=== PATIENT | male | born 1950 | race Caucasian/White ===

== ENCOUNTER 2016-10-25 10:50 | Inpatient (IN) | payer OTHER, MEDICARE ==
[~2016-10-25] VITALS: Ht 180.3 cm; Wt 91.8 kg
[~2016-10-25 10:50] MED LIST: ALBUAER3 INH; GLIP10TA6 PO; IBUP800T23 PO; LISI-519 PO; METF1000 PO; PROP20TA3 PO; ZOCO20TA PO; [UNRECOGNIZED DRUG - OTHER]
[2016-11-01] MEDS ORDERED: EMPA1TAB PO (12:43)
--- NOTE | 2016-11-08 16:35 | MH ---
cc: KATIUSKA RIGGS M.D., ROHIT K. M.D. DATE OF ADMISSION: 11/09/2016 ADMITTING DIAGNOSIS: Lumbar degenerative disk disease. HISTORY OF PRESENT ILLNESS: This is a 66-year-old male who presented to us for evaluation of low back pain and he had a right leg pain. He states in June/ July 2012 he tripped at work and developed low back pain. He states initially this was a workers' compensation case, but he states it was determined his low back pain was from degeneration and not his injury and the case was closed. He complains of pain radiating into the right medial thigh and calf into the foot and then it is hard to tell in the foot where goes. He has paresthesias associated with this. He denies any left leg symptoms. He denies any bowel or bladder incontinence. He has tried physical therapy which did not help and it may have made it worse. He has been to a chiropractor which helped initially but less effective with time. He has been to pain management had initially two epidural steroid injections and other at a later and they helped for a short period time. He states the only thing that has helped him is Percocet 10/325 he is taking q. 5 hours. He states he took this for almost two years and has been off since June and he has seen his primary care physician who gave him tramadol, but he states that it is not as affective and he feels more side effects from that medication. PAST MEDICAL HISTORY: 1. The past medical history is significant for diabetes mellitus. 2. Hypertension, 3. Hyperlipidemia, 4. Left knee surgery for torn ligaments in 1968 5. Right shoulder surgery for rotator cuff in 2012 6. Right knee surgery for meniscus repair in 2013 7. Surgery for diverticulitis in 2010. CURRENT MEDICATIONS 1. He is taking tramadol 50 mg. 2. Glipizide 10 mg b.i.d. 3. Lisinopril 5 mg daily. 4. Metformin 1000 mg b.i.d. 5. Propranolol 20 mg b.i.d. 6. Simvastatin 20 mg q.h.s. 7. ProAir p.r.n. 8. Jardiance. FAMILY HISTORY His father is at 80 year's, his mother is at 86 year's old. His brother is alive at 53 year's old and well. He has sister who is alive at 63 year's old and well. SOCIAL HISTORY He is . He does not have children.. He does not smoke. He quit in 1994. He drinks alcohol very occasionally which include REVIEW OF SYSTEMS CONSTITUTIONAL: He denies any fever or chills. EARS, NOSE, AND THROAT: no pharyngitis, exudates or bloody drainage from his nose. CARDIOVASCULAR: Denies any chest pain or palpitations. RESPIRATORY: No cough or shortness of breath. GENITOURINARY: No dysuria hematuria. MUSCULOSKELETAL: Positive for low back pain. SKIN: No rashes or pruritus. NEUROLOGIC: No difficulty with speech or memory. GASTROINTESTINAL: No nausea, vomiting, Abdominal pain. PSYCHIATRIC: No anxiety or depression symptoms ENDOCRINE: No polyuria, polydipsia. HEMATOLOGIC: No bruising or bleeding tendencies. PHYSICAL EXAMINATION HEAD, EYES, EARS, NOSE, AND THROAT: No is normocephalic, atraumatic. NECK: supple. No carotid bruits heard on auscultation. LUNGS: Clear to auscultation bilaterally. HEART: Regular rate and rhythm, normal s1, s2. ABDOMEN: Soft, nontender. Positive bowel sounds. SKIN: Reveals no cyanosis or erythema. MUSCULOSKELETAL: He has give-way right iliopsoas weakness at 4/5 right EHL weakness 4/5 otherwise strength is 5/5 in lower extremities. NEUROLOGIC: He is awake, alert, oriented. Cranial nerves II-XII are grossly intact. Speech is fluent. Comprehension is good. Reflexes are very diminished in lower extremities. DATE REVIEWED: Reviewed MRI of the lumbar spine from January 13, 2016 which reveals severe L5-S1 disk degeneration with disk height collapse along with facet arthropathy and significant left-sided foraminal stenosis. There is also L4/L5 disk degeneration with a facet arthropathy and disk protrusion with significant right-sided foraminal stenosis. IMPRESSION 66-year-old male with a chronic history of low back pain with associated right L5 radiculopathy. His pain and symptoms limit his activity status and he has not responded to conservative measures including physical therapy and chiropractic treatment as well as interventional pain management. He has severe L5-S1 degenerative disk disease with disk height collapse along with left-sided foraminal stenosis as well as moderate of L4-L5, degenerative disk disease with facet arthropathy and significant right-sided foraminal stenosis. PLAN We have discussed treatment options with the patient which include continued conservative measures with pain management versus surgical intervention. The patient states he wants to proceed with surgical intervention. We have recommended a L4-L5 and L5-S1 transforaminal decompression with interbody fusion pedicle screw fixation. The procedure as well as risk benefit, alternative and recovery time were explained in great detail with the patient. We have discussed the risks involved with surgery include but are not limited to bleeding, infection, muscle weakness voice hoarseness, difficulty swallowing, heart attack, stroke blood clots, non fusion scar tissue formation among others. All of his questions were answered to his satisfaction, he is requesting that we proceed and he was therefore scheduled accordingly. Michael Vásquez MD DICTATED BY DARYN Mijares/bin /3:51 PM /4:05 PM
[2016-11-09] MEDS ORDERED: VANCOMYCIN HCL 1000 MG ON-CALL/NS 250 ML IV SCH ×2 (06:15)
[2016-11-09] MEDS ORDERED: SODIUM CHLORID 0.9% 500 ML IV PRN (06:30)
[2016-11-09] MEDS ORDERED: CHLORHEXIDINE GLUCONATE 2 % 1 PACK (2 CLOTHS) TOPICAL PRN (06:30)
[2016-11-09] MEDS ORDERED: LACTATED RINGER'S 1000 ML IV PRN (06:30)
[2016-11-09] MEDS ORDERED: INSULIN HUMAN REGULAR 1,000 UNITS/10 ML VIAL SQ PRN (06:30)
[2016-11-09] MEDS ORDERED: METOPROLOL TARTRATE 25 MG TAB PO PRN (06:30)
[2016-11-09] MEDS ORDERED: POVIDONE IODINE 5% (ANTISEPSIS KIT) 4 APPLICATIONS EACH NARE PRN (06:30)
[2016-11-09] MEDS ORDERED: SODIUM CHLOR 0.9% 1000 ML INJ 1,000 ML IV SCH (06:30)
[2016-11-09] MEDS ORDERED: GELFOAM SIZE 100 ONE (06:48)
[2016-11-09] MEDS ORDERED: THROMBIN (TOPICAL) 5,000 UNIT VIAL ONE (06:48)
[2016-11-09 06:49] VITALS: BP 121/76; PULSE 50; RESP 18; TEMP 98; O2SAT 97
[2016-11-09] MEDS ORDERED: MIDAZOLAM HCL 2 MG/2 ML VIAL ONE (07:51)
[2016-11-09] MEDS ORDERED: DEXAMETHASONE SOD PHOS 4 MG/ML VIAL ONE (07:51)
[2016-11-09] MEDS ORDERED: ACETAMINOPHEN 1000 MG/100 ML VIAL IV ONE (07:51)
[2016-11-09] MEDS ORDERED: FAMOTIDINE 20 MG/2 ML VIAL ONE (07:51)
[2016-11-09] MEDS: BUPIVACAINE/EPINEPHRINE 0.5% PF 30 ML VIAL ONE ×2 (09:27→12:16)
[2016-11-09] MEDS: VANCOMYCIN HCL 1000 MG VIAL ONE ×2 (09:30→12:16)
[2016-11-09] MEDS ORDERED: NORMOSOL R INJ 2,000 ML IV ONE (12:00)
[2016-11-09] MEDS ORDERED: ePHEDrine/NS 25 MG/5 ML SYR IV ONE (12:00)
[2016-11-09] MEDS ORDERED: NEOSTIGMINE 3 MG/3 ML SYR IV ONE (12:00)
[2016-11-09] MEDS ORDERED: ONDANSETRON HCL 4 MG/2 ML VIAL IV PUSH ONE (12:00)
[2016-11-09] MEDS ORDERED: PROPOFOL 200 MG/20 ML AMP IV ONE (12:00)
[2016-11-09] MEDS ORDERED: ALUMINUM/MAGNESIUM/SIMETH 30 ML CUP PO PRN (12:45)
[2016-11-09] MEDS ORDERED: POTASSIUM CHLOR 20 MEQ PREMIX 100 ML IV PRN (12:45)
[2016-11-09] MEDS ORDERED: cloNIDine HCL 0.1 MG TAB PO PRN (12:45)
[2016-11-09] MEDS ORDERED: MAGNESIUM HYDROXIDE SUSP 30 ML CUP PO PRN (12:45)
[2016-11-09] MEDS ORDERED: DEXTROSE 50% IN WATER 50 ML VIAL(D50) IV PRN (12:45)
[2016-11-09] MEDS ORDERED: NALOXONE HCL 0.4 MG/ML AMP IV PRN (12:45)
[2016-11-09] MEDS ORDERED: SODIUM CHLORIDE 0.9% FLUSH 10 ML FLUSH IV FLUSH PRN (12:45)
[2016-11-09] MEDS ORDERED: CALCIUM GLUCONATE INJ 1 GM in SODIUM CHLORIDE 0.9% INJ 100 ML IV PRN (12:45)
[2016-11-09] MEDS ORDERED: ONDANSETRON HCL 4 MG/2 ML VIAL IV PRN (12:45)
[2016-11-09] MEDS ORDERED: ACETAMINOPHEN 325 MG TAB PO PRN (12:45)
[2016-11-09] MEDS ORDERED: MAGNESIUM SULFATE INJ 2 GM in SODIUM CHLORIDE 0.9% INJ 100 ML IV PRN (12:45)
[2016-11-09] MEDS ORDERED: MENTHOL LOZENGE BUCCAL PRN (12:45)
[2016-11-09] MEDS ORDERED: diphenhydrAMINE HCL 50 MG/ML VIAL IV PRN (12:45)
[2016-11-09] MEDS ORDERED: ACETAMINOPHEN/HYDROcodone 325 MG/10 MG TAB PO PRN (12:45)
[2016-11-09] MEDS ORDERED: GLUCAGON 1 MG/ML VIAL OTHER PRN (12:45)
[2016-11-09] MEDS ORDERED: DO NOT ADM ANY ANTICOAGULANT DRUGS PRN (12:50)
--- NOTE | 2016-11-09 12:51 | PD.OP ---
Alex Huff MD Operative Report Date of Surgery: November 09, 2016 Preoperative Diagnosis: Intractable low back pain with right L4 and L5 radiculopathy; L4-5 and L5-S1 facet hypertrophy with degenerative disc disease and foraminal stenosis Postoperative Diagnosis: Same Procedure: Right L4-5 and L5-S1 transforaminal decompression with interbody fusion; L4-S1 pedicle screw fixation; L4-5 and L5-S1 interbody cage placement; microsurgical technique Anesthesia: Gen. endotracheal by Rebecca Castellanos Surgeon: Michael Vásquez M.D. Special Procedure Technologist(s): Deanne Sanchez Operation and Findings: Following initiation of general endotracheal anesthesia, the patient had a Navarrete catheter placed along with sequential compression devices. A gram of vancomycin was administered intravenously and he was turned in a prone position on a Harry frame, on a Otilio table, and all pressure points adequately padded. The lumbosacral region was then prepped with Chloraprep and sterilely draped with Ioban along the usual sterile draping. A right paraspinal skin incision was then made extending from the L4-S1 levels after infiltrating the skin with 0.5% Marcaine with epinephrine solution extending down through the fascia. The muscle fibers were split using avascular fatty plane and detached from the underlying facets, transverse process and lateral portion of lamina on the right side and a self-retaining retractor used for exposure. Intraoperative fluoroscopy was also used for level of confirmation along with microscope magnification for further dissection. There was significant facet and ligamentum flavum hypertrophy noted at the L4-5 and L5-S1 level. Right L4-5 and L5-S1 facets were resected with a drill bit along with the lamina and there was severe foraminal and lateral recess stenosis from hypertrophied ligamentum flavum and facet which were decompressed. There was significant disc height collapse along with disc protrusion also leading to the foraminal stenosis at both levels. Epidural hemostasis was achieved with bipolar cautery and Gelfoam with thrombin. Subsequently entered into the disc space at the L4- 5 and subsequently at the L5 and S1 level with a #15 blade and mallory were used for discectomy. I then placed PEEK cages packed with local autograft bone and more local autograft bone was packed adjacent to the cages in both interspaces for added interbody fusion. With placement of the cages, I was able to distract the interspace and opened up the foramen further bilaterally. Subsequently in order to facilitate the fusion and provide stabilization, pedicle screw fixation was undertaken using Russell spine screws on entry point at the right L4-5 at the junction of the transverse process and facet and S1 sacral ala. Subsequently using AP and lateral fluoroscopy tap and screw placement. The screws were then connected with a jomar and locked in place with caps. The construct appeared very secure at this point. The area was then copiously irrigated with Vancomycin solution and powder. The retractors were removed and the bipolar cautery used for hemostasis. The muscle fascia was then approximated using 2-0 Vicryl interrupted stitches and then 3-0 Vicryl subcuticular stitches also placed in interrupted fashion. The final skin closure was completed with Dermabond. A sterile dressing was then applied. The patient then turned in supine position, extubated and taken to recovery room. There were no intraoperative complications. All sponge and needle counts were correct at the end of procedure. Estimated blood loss about 100 ml. Michael Vásquez MD November 09, 2016 12:51
[2016-11-09] MEDS ORDERED: fentaNYL CITRATE 250 MCG/5 ML AMP ONE (13:00)
[2016-11-09] MEDS ORDERED: ALBUTEROL SULFATE 90 MCG/ACT HFA 18 GM INHALER INH PRN (13:00)
--- NOTE | 2016-11-09 13:02 | RADRPT ---
EXAM DATE/TIME: 11/09/2016 08:50 [facility] COMPARISON: No previous studies available for comparison. INDICATIONS : L4-L5-S1 posterior lumbar fusion. Level localization. MEDICAL HISTORY : None. SURGICAL HISTORY : None. ENCOUNTER: Initial ACUITY: 1 day PAIN SCORE: Non-responsive. LOCATION: Lumbar spine CONCLUSION: Fluoroscopic images demonstrates temporary probes along the posterior elements at L4 and L5. Harry Adkins MD on November 09, 2016 at 13:00 Board Certified Radiologist. This report was verified electronically.
--- NOTE | 2016-11-09 13:03 | RADRPT ---
EXAM DATE/TIME: 11/09/2016 08:50 [facility] COMPARISON: No previous studies available for comparison. INDICATIONS : Post-op L4-L5-S1 posterior lumbar fusion. MEDICAL HISTORY : None. SURGICAL HISTORY : None. ENCOUNTER: Initial ACUITY: 1 day PAIN SCORE: Non-responsive. LOCATION: Lumbar spine. FINDINGS: There are postoperative changes of right-sided transpedicular screw and jomar fixation across L4-L5-S1. Disc spacers present. No complications identified. CONCLUSION: 1. Postoperative fixation L4-5-S1 on the right side. No complications identified. Michael Javier MD on November 09, 2016 at 12:54 Board Certified Radiologist. This report was verified electronically.
[2016-11-09] MEDS: MORPHINE SULFATE 30 MG/30 ML PCA IV SCH (13:09)
[2016-11-09] MEDS: NS + KCL 20 MEQ INJ 1,000 ML IV SCH ×2 (13:09→19:43)
[2016-11-09 13:24] LABS: HEMATOCRIT 37.2 % (39.0-51.0); MEAN CELL VOLUME 92.1 FL (80.0-100.0); MEAN CORPUSCULAR HEMOGLOBIN 31.7 PG (27.0-34.0); MEAN CORPUSCULAR HGB CONC 34.4 % (32.0-36.0); PLATELET COUNT 171 TH/MM3 (150-450); RED BLOOD COUNT 4.04 MIL/MM3 (4.50-5.90); REVIEW FLAG FINAL; WHITE BLOOD COUNT 10.8 TH/MM3 (4.0-11.0)
[2016-11-09 13:39] LABS: BICARBONATE 23.2 MEQ/L (21.0-32.0); POTASSIUM 4.8 MEQ/L (3.5-5.1)
[2016-11-09] MEDS: PCA - TOTAL MG MORPHINE DELIVERED PER SHIFT SCH ×2 (14:00→22:00)
[2016-11-09 14:20] VITALS: BP 130/67; PULSE 57; RESP 18; TEMP 96.2; O2SAT 94
[2016-11-09] MEDS: ACETAMINOPHEN/HYDROcodone 325 MG/10 MG TAB PO PRN (15:25)
[2016-11-09 16:00] VITALS: BP 142/68; PULSE 54; RESP 18; TEMP 97.8; O2SAT 96
[2016-11-09] MEDS: INSULIN NovoLIN REGULAR SUPPLEMENTAL SCALE SQ SCH ×2 (16:00→19:44)
[2016-11-09] MEDS: PROPRANOLOL HCL 20 MG TAB PO SCH (19:42)
[2016-11-09] MEDS: SODIUM CHLORIDE 0.9% FLUSH 10 ML FLUSH IV FLUSH SCH (19:43)
[2016-11-09] MEDS: DOCUSATE SODIUM 100 MG CAP PO SCH (19:43)
[2016-11-09 20:00] VITALS: BP 156/95; PULSE 64; RESP 22; TEMP 96; O2SAT 94
[2016-11-10] VITALS (7 sets, daily range): BP systolic 97–151; BP diastolic 59–75; PULSE 57–77; RESP 17–20; TEMP 96.4–99.1; O2SAT 90–97
[2016-11-10] MEDS: ZOLPIDEM TARTRATE 5 MG TAB PO PRN ×2 (00:12→22:06)
[2016-11-10] MEDS: PCA - TOTAL MG MORPHINE DELIVERED PER SHIFT SCH ×3 (06:00→22:00)
[2016-11-10] MEDS: INSULIN NovoLIN REGULAR SUPPLEMENTAL SCALE SQ SCH ×4 (07:00→20:26)
[2016-11-10] MEDS: LISINOPRIL 5 MG TAB PO SCH (07:43)
[2016-11-10] MEDS: PRAVASTATIN SOD 40 MG TAB PO SCH (07:43)
[2016-11-10] MEDS: CYCLOBENZAPRINE HCL 10 MG TAB PO PRN (07:43)
[2016-11-10] MEDS: PROPRANOLOL HCL 20 MG TAB PO SCH ×2 (07:44→20:25)
[2016-11-10] MEDS: PANTOPRAZOLE SOD 40 MG DELAYED RELEASE TAB PO SCH (07:44)
[2016-11-10] MEDS: DOCUSATE SODIUM 100 MG CAP PO SCH ×2 (07:44→20:25)
[2016-11-10] MEDS: SODIUM CHLORIDE 0.9% FLUSH 10 ML FLUSH IV FLUSH SCH ×2 (07:45→20:26)
[2016-11-10] MEDS: LACTULOSE SYRUP 20 GM/30 ML CUP PO SCH (07:45)
[2016-11-10] MEDS: MORPHINE SULFATE 30 MG/30 ML PCA IV SCH (07:48)
[2016-11-10] MEDS: ACETAMINOPHEN/HYDROcodone 325 MG/10 MG TAB PO PRN (09:48)
[2016-11-10] MEDS: NS + KCL 20 MEQ INJ 1,000 ML IV SCH ×2 (15:00→20:27)
--- NOTE | 2016-11-10 20:16 | HHI.NSPN ---
History Chief Complaint: low back pain Interval History 66-year-old male underwent L4-S1 TLIF 11/09/16 11/10/16: Ambulated 145 feet in physical therapy with rolling walker. He remains on REGISTERED NURSE HH CASE MANAGER System Review Comments No abdominal pain, nausea. No fevers or chills. No lower extremity pain weakness or numbness Exam Results Vital Signs Date Time Temp Pulse Resp B/P Pulse Ox O2 Delivery O2 Flow Rate FiO2 11/10/16 15:30 98.0 64 17 116/59 90 11/10/16 09:03 21 11/09/16 13:45 Nasal Cannula 2 Intake and Output 11/09/16 11/09/16 11/10/16 08:00 16:00 00:00 Intake Total 2139 ml 1286 ml Output Total 1400 ml 750 ml Balance 739 ml 536 ml Physical Examination Sitting up in chair Appears reasonable comfortable REGISTERED NURSE HH CASE MANAGER place awake and alert conversant and appropriate Mild distal lower extremity edema Sensation intact to light touch lower extremities Strength normal lower extremities major flexion and extension groups Medical Decision Making Impression and Plan Impression: 1. Steady improvement in ambulation. L4-S1 discectomy and fusion. Plan: Findings were discussed with the patient. He would like to try to wean off the REGISTERED NURSE HH CASE MANAGER in the morning. Physical therapy notes reviewed. He ambulated 145 feet today with the rolling walker with contact guard assistance. Anticipate discharge home 11/12/16 Prabhu Sullivan MD November 10, 2016 20:16
[2016-11-11] VITALS (7 sets, daily range): BP systolic 102–132; BP diastolic 65–74; PULSE 72–98; RESP 16–18; TEMP 96.6–99.6; O2SAT 95–97
[2016-11-11] MEDS: ACETAMINOPHEN/HYDROcodone 325 MG/10 MG TAB PO PRN ×4 (05:19→20:19)
[2016-11-11] MEDS: PCA - TOTAL MG MORPHINE DELIVERED PER SHIFT SCH ×3 (06:00→21:37)
[2016-11-11] MEDS: INSULIN NovoLIN REGULAR SUPPLEMENTAL SCALE SQ SCH ×4 (07:00→20:21)
[2016-11-11] MEDS: PROPRANOLOL HCL 20 MG TAB PO SCH ×2 (08:38→20:19)
[2016-11-11] MEDS: PRAVASTATIN SOD 40 MG TAB PO SCH (08:42)
[2016-11-11] MEDS: SODIUM CHLORIDE 0.9% FLUSH 10 ML FLUSH IV FLUSH SCH ×2 (08:42→20:18)
[2016-11-11] MEDS: LACTULOSE SYRUP 20 GM/30 ML CUP PO SCH ×2 (08:43→15:43)
[2016-11-11] MEDS: DOCUSATE SODIUM 100 MG CAP PO SCH ×2 (08:43→20:19)
[2016-11-11] MEDS: PANTOPRAZOLE SOD 40 MG DELAYED RELEASE TAB PO SCH (08:43)
[2016-11-11] MEDS: LISINOPRIL 5 MG TAB PO SCH (08:43)
[2016-11-11] MEDS: NS + KCL 20 MEQ INJ 1,000 ML IV SCH (16:00)
[2016-11-11] MEDS: CYCLOBENZAPRINE HCL 10 MG TAB PO PRN (16:05)
--- NOTE | 2016-11-11 18:00 | HHI.NSPN ---
History Chief Complaint: low back pain Interval History 66-year-old male underwent L4-S1 TLIF 11/09/16 11/10/16: Ambulated 145 feet in physical therapy with rolling walker. He remains on NEWSPAPER COPY EDITOR Exam Results Vital Signs Date Time Temp Pulse Resp B/P Pulse Ox O2 Delivery O2 Flow Rate FiO2 11/11/16 16:00 97.6 98 18 131/70 96 11/11/16 10:46 21 11/09/16 13:45 Nasal Cannula 2 Intake and Output 11/10/16 11/10/16 11/10/16 07:59 15:59 23:59 Intake Total 1081 ml 500 ml 1424 ml Output Total 550 ml 150 ml 250 ml Balance 531 ml 350 ml 1174 ml Physical Examination Sitting up in chair Appears reasonably comfortable NEWSPAPER COPY EDITOR discontinued Mild distal lower extremity edema Sensation intact to light touch lower extremities Strength normal lower extremities major flexion and extension groups Positive hiccoughs Abdomen soft nontender Medical Decision Making Impression and Plan Impression: 1. Steady improvement in ambulation. L4-S1 discectomy and fusion. Plan: Findings were discussed with the patient. NEWSPAPER COPY EDITOR discontinued Continue physical therapy Declines medications for hiccoughs Anticipate discharge home 11/12/16 Prabhu Sullivan MD November 11, 2016 17:59
[2016-11-11] MEDS: ZOLPIDEM TARTRATE 5 MG TAB PO PRN (20:19)
[2016-11-12 00:30] VITALS: BP 142/77; PULSE 80; RESP 18; TEMP 98.3; O2SAT 96
[2016-11-12] MEDS: NS + KCL 20 MEQ INJ 1,000 ML IV SCH ×2 (03:14→17:00)
[2016-11-12] MEDS: CYCLOBENZAPRINE HCL 10 MG TAB PO PRN ×3 (03:25→20:38)
[2016-11-12] MEDS: ACETAMINOPHEN/HYDROcodone 325 MG/10 MG TAB PO PRN ×4 (03:25→20:38)
[2016-11-12] MEDS: PCA - TOTAL MG MORPHINE DELIVERED PER SHIFT SCH ×3 (04:29→20:41)
[2016-11-12] MEDS: INSULIN NovoLIN REGULAR SUPPLEMENTAL SCALE SQ SCH ×4 (06:21→20:39)
[2016-11-12 08:00] VITALS: BP 115/71; PULSE 72; RESP 17; TEMP 97.2; O2SAT 96
[2016-11-12] MEDS: LACTULOSE SYRUP 20 GM/30 ML CUP PO SCH (09:28)
[2016-11-12] MEDS: PRAVASTATIN SOD 40 MG TAB PO SCH (09:30)
[2016-11-12] MEDS: DOCUSATE SODIUM 100 MG CAP PO SCH ×2 (09:30→20:38)
[2016-11-12] MEDS: PANTOPRAZOLE SOD 40 MG DELAYED RELEASE TAB PO SCH (09:30)
[2016-11-12] MEDS: LISINOPRIL 5 MG TAB PO SCH (09:30)
[2016-11-12] MEDS: PROPRANOLOL HCL 20 MG TAB PO SCH ×2 (09:30→20:40)
[2016-11-12] MEDS: SODIUM CHLORIDE 0.9% FLUSH 10 ML FLUSH IV FLUSH SCH ×2 (09:31→20:41)
--- NOTE | 2016-11-12 10:49 | HHI.NSPN ---
History Chief Complaint: low back pain Interval History 11/12/16: Pt awake and alert. Complains of incisional back and abdominal pain. No radiculopathy in LEs. No paresthesias in LEs. He has had a BM and denies any rectal bleeding. 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 He states the abdominal pain feels like his diverticulitis pain he has had in the past. He states he has had it since he woke up from anesthesia and hasn't improved since. Complains of decreased PO intake. Review of Systems General: Negative for: fever, chills, insomnia Respiratory: Negative for: shortness of breath, cough, sputum Cardiovascular: Negative for: chest pain Gastrointestinal: Negative for: nausea, vomitting, diarrhea, constipation Exam Results Vital Signs Date Time Temp Pulse Resp B/P Pulse Ox O2 Delivery O2 Flow Rate FiO2 11/12/16 08:00 97.2 72 17 115/71 96 11/11/16 10:46 21 11/09/16 13:45 Nasal Cannula 2 Intake and Output 11/11/16 11/11/16 11/12/16 08:00 16:00 00:00 Intake Total 773 ml 960 ml 240 ml Output Total 350 ml Balance 423 ml 960 ml 240 ml Physical Examination Resp: CTA bilaterally Heart: NSR no murmurs Abd: Mild distention. Positive bs. Some discomfort to palpation bilateral lower abdominal area. Skin: No cyanosis or erythema Muscle: Moves LEs with good strength. Neuro: Pt awake and alert. Follows commands well. Speech clear and appropriate. Lab, Micro, Other Results 11/11/16 11/11/16 11/12/16 15:00 23:00 07:00 Intake Total 960 ml 240 ml 240 ml Output Total 200 ml Balance 960 ml 240 ml 40 ml Intake Oral 960 ml 240 ml 240 ml Output Urine Total 200 ml # Voids 3 1 1 # Bowel Movements 0 0 0 Medical Decision Making Impression and Plan A: 66 y/o M s/p right L4-5 and L5-S1 transforaminal decompression with interbody fusion; L4-S1 pedicle screw fixation; L4-5 and L5-S1 interbody cage placement; microsurgical technique Abdominal discomfort. P: Pt doesn't want to drink contrast for abdominal CT to further evaluate for diverticulitis. Abdominal x-ray obtained to evaluate for now. Pt was previously treated with Augmentin and placed on this. Continue with Rehab efforts. Harry Calvo November 12, 2016 10:49
[2016-11-12] MEDS: AMOXICILLIN/CLAVULANATE K 500 MG TAB PO SCH ×2 (11:55→20:38)
[2016-11-12 12:00] VITALS: BP 98/63; PULSE 65; RESP 17; TEMP 98; O2SAT 95
--- NOTE | 2016-11-12 13:37 | RADRPT ---
EXAM DATE/TIME: 11/12/2016 12:43 [facility] COMPARISON: No previous studies available for comparison. INDICATIONS : Abdominal pain, distention for 3 days. MEDICAL HISTORY : Diverticulitis. SURGICAL HISTORY : PLIF on 11/09/16 ENCOUNTER: Subsequent ACUITY: 3 days PAIN SCORE: 8/10 LOCATION: Abdomen. FINDINGS: 2 supine frontal views of the abdomen demonstrate dilated air-filled colon that is diffusely distende d to the rectum. Only a minimal amount of small bowel gas is visualized. No organomegaly is appreciat ed. There is hardware in the lumbosacral region extending from L4-S1 on the right. Lung bases are vladimir ar. CONCLUSION: Diffuse moderate dilatation of the colon. There are no features to suggest obstruction. Marko Lozano MD on November 12, 2016 at 13:34 Board Certified Radiologist. This report was verified electronically.
[2016-11-12 13:43] LABS: AUTOMATED NEUTROPHIL # 7.6 TH/MM3 (1.8-7.7); BASOPHIL % 0.5 % (0.0-2.0); EOSINOPHIL % 0.3 % (0.0-4.0); HEMATOCRIT 34.7 % (39.0-51.0); HEMO FLAGS DIFF FINAL; LYMPH % 14.1 % (9.0-44.0); LYMPHOCYTE # 1.5 TH/MM3 (1.0-4.8); MEAN CELL VOLUME 92.1 FL (80.0-100.0); MEAN CORPUSCULAR HEMOGLOBIN 31.2 PG (27.0-34.0); MEAN CORPUSCULAR HGB CONC 33.9 % (32.0-36.0); MONO % 13.1 % (0.0-8.0); PLATELET COUNT 165 TH/MM3 (150-450); RED BLOOD COUNT 3.76 MIL/MM3 (4.50-5.90); RED CELL DISTRIBUTION WIDTH 13.4 % (11.6-17.2); WHITE BLOOD COUNT 10.6 TH/MM3 (4.0-11.0)
[2016-11-12 14:25] LABS: ALKALINE PHOSPHATASE 62 U/L (45-117); ALT (GPT) 18 U/L (12-78); ANION GAP 8 MEQ/L (5-15); AST (GOT) 16 U/L (15-37); BICARBONATE 26.6 MEQ/L (21.0-32.0); BLOOD UREA NITROGEN 6 MG/DL (7-18); CHLORIDE 102 MEQ/L (98-107); GLOMERULAR FILTRATION RATE 83 ML/MIN (>89); POTASSIUM 3.9 MEQ/L (3.5-5.1); SODIUM (NA) 137 MEQ/L (136-145); TOTAL BILIRUBIN ADULT 0.7 MG/DL (0.2-1.0)
[2016-11-12 16:00] VITALS: BP 124/76; PULSE 70; RESP 17; TEMP 96.9; O2SAT 95
[2016-11-12 20:00] VITALS: BP 118/71; PULSE 61; RESP 20; TEMP 96.8; O2SAT 96
[2016-11-13] VITALS: BP 113/70; PULSE 56; RESP 18; TEMP 96.6; O2SAT 96
[2016-11-13] MEDS: PCA - TOTAL MG MORPHINE DELIVERED PER SHIFT SCH (03:16)
[2016-11-13] MEDS: NS + KCL 20 MEQ INJ 1,000 ML IV SCH (03:16)
[2016-11-13 04:00] VITALS: BP 145/73; PULSE 61; RESP 18; TEMP 96.9; O2SAT 96
[2016-11-13] MEDS: ACETAMINOPHEN/HYDROcodone 325 MG/10 MG TAB PO PRN ×2 (05:22→10:56)
[2016-11-13] MEDS: CYCLOBENZAPRINE HCL 10 MG TAB PO PRN (05:22)
[2016-11-13] MEDS: INSULIN NovoLIN REGULAR SUPPLEMENTAL SCALE SQ SCH ×2 (06:24→10:55)
[2016-11-13 07:45] VITALS: BP 119/65; PULSE 63; RESP 20; TEMP 95.5; O2SAT 96
[2016-11-13] MEDS: LACTULOSE SYRUP 20 GM/30 ML CUP PO SCH (07:59)
[2016-11-13] MEDS: PANTOPRAZOLE SOD 40 MG DELAYED RELEASE TAB PO SCH (08:00)
[2016-11-13] MEDS: PRAVASTATIN SOD 40 MG TAB PO SCH (08:00)
[2016-11-13] MEDS: AMOXICILLIN/CLAVULANATE K 500 MG TAB PO SCH (08:00)
[2016-11-13] MEDS: PROPRANOLOL HCL 20 MG TAB PO SCH (08:00)
[2016-11-13] MEDS: SODIUM CHLORIDE 0.9% FLUSH 10 ML FLUSH IV FLUSH SCH (08:00)
[2016-11-13] MEDS: LISINOPRIL 5 MG TAB PO SCH (08:00)
[2016-11-13] MEDS: DOCUSATE SODIUM 100 MG CAP PO SCH (08:00)
--- NOTE | 2016-11-13 09:42 | HHI.NSPN ---
History Chief Complaint: low back pain Interval History 11/12/16: Pt awake and alert. Complains of incisional back and abdominal pain. No radiculopathy in LEs. No paresthesias in LEs. He has had a BM and denies any rectal bleeding. 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 He states the abdominal pain feels like his diverticulitis pain he has had in the past. He states he has had it since he woke up from anesthesia and hasn't improved since. Complains of decreased PO intake. 11/13/16: Pt complains of incisional back and lower abdominal pain. He states the pain is a little better than yesterday but still doesn't feel he can go home. He had a bm last night he states. Review of Systems General: Negative for: fever, chills, insomnia Respiratory: Negative for: shortness of breath, cough, sputum Cardiovascular: Negative for: chest pain Gastrointestinal: Negative for: nausea, vomitting, diarrhea, constipation Exam Results Vital Signs Date Time Temp Pulse Resp B/P Pulse Ox O2 Delivery O2 Flow Rate FiO2 11/13/16 07:45 95.5 63 20 119/65 96 11/11/16 10:46 21 11/09/16 13:45 Nasal Cannula 2 Intake and Output 11/12/16 11/12/16 11/13/16 08:00 16:00 00:00 Intake Total 240 ml 960 ml 780 ml Output Total 200 ml Balance 40 ml 960 ml 780 ml Physical Examination Resp: CTA bilaterally Heart: NSR no murmurs Abd: Mild distention. Positive bs. Some discomfort to palpation bilateral lower abdominal area. Skin: No cyanosis or erythema. Pt log rolled incision clean and dry. Glue in place and incision intact. Muscle: Moves LEs with good strength. Neuro: Pt awake and alert. Follows commands well. Speech clear and appropriate. Lab, Micro, Other Results Laboratory Tests Test 11/12/16 13:14 White Blood Count 10.6 TH/MM3 Red Blood Count 3.76 MIL/MM3 Hemoglobin 11.8 GM/DL Hematocrit 34.7 % Mean Corpuscular Volume 92.1 FL Mean Corpuscular Hemoglobin 31.2 PG Mean Corpuscular Hemoglobin 33.9 % Concent Red Cell Distribution Width 13.4 % Platelet Count 165 TH/MM3 Mean Platelet Volume 9.2 FL Neutrophils (%) (Auto) 72.0 % Lymphocytes (%) (Auto) 14.1 % Monocytes (%) (Auto) 13.1 % Eosinophils (%) (Auto) 0.3 % Basophils (%) (Auto) 0.5 % Neutrophils # (Auto) 7.6 TH/MM3 Lymphocytes # (Auto) 1.5 TH/MM3 Monocytes # (Auto) 1.4 TH/MM3 Eosinophils # (Auto) 0.0 TH/MM3 Basophils # (Auto) 0.0 TH/MM3 CBC Comment DIFF FINAL Differential Comment Sodium Level 137 MEQ/L Potassium Level 3.9 MEQ/L Chloride Level 102 MEQ/L Carbon Dioxide Level 26.6 MEQ/L Anion Gap 8 MEQ/L Blood Urea Nitrogen 6 MG/DL Creatinine 0.92 MG/DL Estimat Glomerular Filtration 83 ML/MIN Rate Random Glucose 179 MG/DL Calcium Level 8.7 MG/DL Total Bilirubin 0.7 MG/DL Aspartate Amino Transf 16 U/L (AST/SGOT) Alanine Aminotransferase 18 U/L (ALT/SGPT) Alkaline Phosphatase 62 U/L Total Protein 6.7 GM/DL Albumin 3.1 GM/DL 11/12/16 11/12/16 11/13/16 15:00 23:00 07:00 Intake Total 960 ml 780 ml 240 ml Balance 960 ml 780 ml 240 ml Intake Oral 960 ml 780 ml 240 ml # Voids 4 1 2 # Bowel Movements 3 1 1 Medical Decision Making Impression and Plan A: 66 y/o M s/p right L4-5 and L5-S1 transforaminal decompression with interbody fusion; L4-S1 pedicle screw fixation; L4-5 and L5-S1 interbody cage placement; microsurgical technique Abdominal discomfort. P: Continue with Augmentin Continue with PT D/C planning Harry Calvo November 13, 2016 09:42
[2016-11-13] MEDS ORDERED: HYDR-3583 PO (10:47)
[2016-11-13] MEDS ORDERED: CYCL1TAB29 PO (10:47)
[2016-11-13] MEDS ORDERED: DOCU1CAP39 PO (10:47)
[2016-11-13] MEDS ORDERED: WALKER WHEELS/F1 MIS (10:49)
[2016-11-13 12:15] VITALS: BP 120/69; PULSE 68; RESP 16; TEMP 96.2; O2SAT 97
[2016-11-27] MEDS ORDERED: HYDR-3583 PO (12:43)
--- NOTE | 2016-11-30 16:49 | HHI.DS ---
Discharge Summary Admission Date November 09, 2016 at 05:54 Discharge Date: November 13, 2016 Admitting Diagnosis (1) Low back pain Diagnosis: Principal ICD Code: M54.5 (2) Lumbar disc prolapse with compression radiculopathy Diagnosis: Principal ICD Code: M51.16 (3) Facet arthropathy, lumbar Diagnosis: Principal ICD Code: M12.88 (4) Lumbar degenerative disc disease Diagnosis: Principal ICD Code: M51.36 (5) Lumbar foraminal stenosis Diagnosis: Principal ICD Code: M99.83 Procedures Right L4/L5 and L5/S1 transforaminal decompression with interbody fusion; L4-S1 pedicle screw fixation; L4/L5 and L5/S1 interbody cage placement by Dr. Vásquez on 11/09/16. Brief History This is a 66 y/o M who presented to us for an evaluation of low back pain and right leg pain. He states in July 2012 he tripped at work and developed low back pain. He states initially this was a worker's compensation case, but he states it was determined his low back pain was from degeneration and not his injury and the case was closed. He complains of pain radiating into the right medical thigh and calf into the foot and then it is hard to tell in the foot where it goes. He has paresthesias associated with this. He denies any left leg symptoms. He denies any bowel or bladder incontinence. He has tried physical therapy which did not help and it may have made it worse. He has been to a chiropractor which helped initially but less effective with time. He has been to pain management had initially two epidural steroid injections an the other later and they helped for a short period of time. He states the only thing that has helped him is Percocet 10/325 he is taking q 5 hours. He states he has seen his primary care physician who gqave him tramadol , but he states that it is not as effective and he feels more side effects from that medication. Imaging MRI of the lumbar spine from January 12, 2015 revealed severe L5/S1 disc degeneration with disc height collapse along with facet arthropathy and significant left sided foraminal stenosis. There is also L4/L5 disc degeneration with a facet arthropathy and disc protrusion with significant right sided foraminal stenosis. Hospital Course Pt underwent the above noted procedure by Dr. Vásquez. There was no intraoperative complications. Postoperatively he was admitted to the med/surg floor. PT was consulted. His pain was controlled. Pt complained of abdominal discomfort similar to previous episode of diverticulitis. An abdominal x-ray was obtained. Pt was treated with antibiotics. He had a BM. He was discharged home. Pt Condition on Discharge: Stable Discharge Disposition: Discharge Home Discharge Instructions DIET: Follow Instructions for: As Tolerated, No Restrictions ACTIVITIES You can perform: Shower Only-No Bath Activities to Avoid: Lifting/Bending, Strenuous Activity, Bathing, Driving New Medications: Walker with Front Wheels (Walker with Front Wheels) 1 Mis Mis 1 EA .ROUTE DIRECTED #1 Ref 0 EA Cyclobenzaprine (Flexeril) 10 Mg Tab 10 MG PO Q8H PRN MUSCLE SPASM #30 Ref 1 TAB Docusate Sodium (Dok) 100 Mg Cap 100 MG PO BID Constipation #30 CAP Continued Medications: Albuterol 8.5 GM Inh (Proair Hfa 8.5 GM Inh) 90 Mcg/Act Aer 2 PUFF INH Q4-6H 108 mcg/actuation PRN SHORTNESS OF BREATH #1 Ref 0 INHALER Empagliflozin (Jardiance) Unknown Strength Tab 10 MG PO DAILY Blood Sugar Management #30 Ref 0 TAB Glipizide (Glipizide) 10 Mg Tab 10 MG PO DAILY Take 30 minutes before a meal Blood Sugar Management #30 Ref 0 TAB Glucose Blood (Assure II Check Strip) 1 Laura Laura Lisinopril (Lisinopril) 5 Mg Tab 5 MG PO DAILY Blood Pressure Management #30 Ref 0 TAB Metformin (Metformin) 1,000 Mg Tab 1000 MG PO BID With a meal Blood Sugar Management #30 Ref 0 TAB Propranolol (Propranolol) 20 Mg Tab 20 MG PO Q12HR #60 Ref 0 TAB Simvastatin (Zocor) 20 Mg Tab 20 MG PO DAILY Cholesterol Management #30 Ref 0 TAB Harry Calvo Nov 30, 2016 16:49
[2016-12-11] MEDS ORDERED: HYDR-3583 PO (14:35)
[2016-12-11] MEDS ORDERED: CYCL1TAB29 PO (14:35)
== END 2016-11-13 12:36 | disposition home or self-care (01) | DRG 460 ==
LOC: EDUNIT# 11-08 08:30 → HSDI 11-09 05:54 → N06A 11-09 14:03
PROVIDERS: ADMIT Neurological Surgery; ATTEND Neurological Surgery
PROC: 0SG00AJ Fusion of Lumbar Vertebral Joint with Interbody Fusion Device, Posterior Approach, Anterior Column, Open Approach (ICD-10-PCS; 2016-11-09)
PROC: 0ST20ZZ Resection of Lumbar Vertebral Disc, Open Approach (ICD-10-PCS; 2016-11-09)
PROC: 0ST40ZZ Resection of Lumbosacral Disc, Open Approach (ICD-10-PCS; 2016-11-09)
PROC: 0SG30AJ Fusion of Lumbosacral Joint with Interbody Fusion Device, Posterior Approach, Anterior Column, Open Approach (ICD-10-PCS; principal; 2016-11-09 08:30)
DX: M51.16 Intervertebral disc disorders with radiculopathy, lumbar region (principal); M48.07 Spinal stenosis, lumbosacral region; I10 Essential (primary) hypertension; E11.9 Type 2 diabetes mellitus without complications; Z79.84 Long term (current) use of oral hypoglycemic drugs; E78.5 Hyperlipidemia, unspecified; R06.6 Hiccough; R10.30 Lower abdominal pain, unspecified
CPT/HCPCS: 36415; 72020; 72100; 74000; 76000; 80048; 80053; 82948; 85025; 85027; 86850; 86900; 86901; 86920; 94150; C1713; J0131; J0690; J1100; J2250; J2270; J2405; J2710; J3010; J3370; J3480; J7050; J7120; L0484

== ENCOUNTER → 2016-11-01 | Outpatient (CLI) | payer MEDICARE, OTHER ==
[~2016-11-01] MED LIST changes: +ALBU2TAB4 PO; +CYCL1TAB29 PO; +DOCU1CAP39 PO; +EMPA1TAB PO; +HYDR-3583 PO; +PERC10TA27 PO; +WALKER WHEELS/F1 MIS
== END ==
LOC: CPRE 12:34
PROVIDERS: ATTEND Neurological Surgery
DX: Z01.812 Encounter for preprocedural laboratory examination (principal); Z01.811 Encounter for preprocedural respiratory examination; Z01.818 Encounter for other preprocedural examination; M99.83 Other biomechanical lesions of lumbar region; M51.16 Intervertebral disc disorders with radiculopathy, lumbar region; M51.36 Other intervertebral disc degeneration, lumbar region; Z79.01 Long term (current) use of anticoagulants